=== PATIENT | female | born 1965 | race Caucasian/White ===

== ENCOUNTER 2016-10-07 04:22 | Emergency (ER) | payer BC ==
[~2016-10-07] VITALS: Ht 160 cm; Wt 63.5 kg
[~2016-10-07 04:22] MED LIST: BACL10TA PO; GABA-534 PO; HYDR-3326 PO; NAPR500T3 PO; PARO10TA23 PO; SULF1TAB48 PO
[2016-10-07] MEDS ORDERED: DEXAMETHASONE SOD PHOSPHATE 4 MG/ML VIAL IM ONE (05:30)
[2016-10-07] MEDS ORDERED: DEXAMETHASONE SOD PHOSPHATE 10 MG/ML VIAL ONE (05:35)
[2016-10-07 06:40] VITALS: BP 138/87
== END 2016-10-07 08:16 | disposition home or self-care (01) ==
LOC: ER 04:25
DX: M25.542 Pain in joints of left hand (principal); M25.562 Pain in left knee; F32.9 Major depressive disorder, single episode, unspecified; F17.200 Nicotine dependence, unspecified, uncomplicated
CPT/HCPCS: 73564-TC; 93970-TC; A4606; J1100; Z7610

== ENCOUNTER 2016-10-19 23:31 | Emergency (ER) | payer BC, MEDICAID ==
[~2016-10-19] VITALS: Ht 160 cm; Wt 64.0 kg
[~2016-10-19 23:31] MED LIST changes: -PARO10TA23 PO; +PARO10TA26 PO
[2016-10-20] MEDS ORDERED: KETOROLAC TROMETHAMINE INJ 60 MG/2 ML VIAL IM ONE
[2016-10-20] MEDS ORDERED: KETOROLAC TROMETHAMINE INJ 30 MG/ML VIAL ONE (00:06)
[2016-10-20 00:50] VITALS: BP 140/74
== END 2016-10-20 00:51 | disposition home or self-care (01) ==
LOC: ER 23:36
DX: S52.592A Other fractures of lower end of left radius, initial encounter for closed fracture (principal); F17.210 Nicotine dependence, cigarettes, uncomplicated; F10.20 Alcohol dependence, uncomplicated; W18.30XA Fall on same level, unspecified, initial encounter; Y93.89 Activity, other specified; Y92.89 Other specified places as the place of occurrence of the external cause; Y99.8 Other external cause status
CPT/HCPCS: 73090-TC; A4606; J1885; Z7610

== ENCOUNTER 2017-06-05 03:42 | Emergency (ER) | payer OTHER ==
[~2017-06-05] VITALS: Ht 162.6 cm; Wt 65.8 kg
[2017-06-05 04:10] VITALS: BP 134/70
== END 2017-06-05 04:53 | disposition home or self-care (01) ==
LOC: ER 03:42
DX: M62.830 Muscle spasm of back (principal); F32.9 Major depressive disorder, single episode, unspecified; G89.4 Chronic pain syndrome
CPT/HCPCS: A4606; J1885; Z7610

== ENCOUNTER 2018-03-12 18:55 | Emergency (ER) | payer OTHER ==
[~2018-03-12] VITALS: Ht 157.5 cm; Wt 70.3 kg
[~2018-03-12 18:55] MED LIST changes: -HYDR-3326 PO; +HYDR-3974 PO; +NAPR-1009 PO; -NAPR500T3 PO; -PARO10TA26 PO; +PARO10TA86 PO
[2018-03-12 19:43] VITALS: BP 142/86
[2018-03-12] MEDS ORDERED: KETOROLAC TROMETHAMINE INJ 30 MG/ML VIAL ONE (20:37)
[2018-03-12] MEDS ORDERED: KETOROLAC TROMETHAMINE INJ 60 MG/2 ML VIAL IM ONE (21:00)
== END 2018-03-12 20:51 | disposition home or self-care (01) ==
LOC: ER 18:56
DX: M26.621 Arthralgia of right temporomandibular joint (principal); F41.9 Anxiety disorder, unspecified; M79.602 Pain in left arm; R45.86 Emotional lability; G89.29 Other chronic pain; F10.10 Alcohol abuse, uncomplicated; Y90.9 Presence of alcohol in blood, level not specified; F17.200 Nicotine dependence, unspecified, uncomplicated; Z98.890 Other specified postprocedural states
CPT/HCPCS: 96372; 99284; A4606; J1885; Z7610

== ENCOUNTER 2019-01-12 20:49 | Emergency (ER) | payer OTHER ==
[~2019-01-12] VITALS: Ht 160 cm; Wt 70.3 kg
--- NOTE | 2019-01-12 21:15 | NUR ---
BIBFRIEND C/O ALL OVER BODY PAIN X 3 DAYS. PATIENT APPEARS VERY ANXIOUS. PT AOX3, AMB, VSS, RR EVEN AND UNLABORED. SKIN INTACT. FRIEND AT BEDSIDE. READY FOR EVAL.
[2019-01-12] MEDS ORDERED: LORAZEPAM INJ 2 MG/ML VIAL IV ONE (22:30)
[2019-01-12] MEDS ORDERED: methylPREDNISolone SOD SUCC 125 MG/2ML VIAL IV ONE (22:30)
[2019-01-12] MEDS ORDERED: KETOROLAC TROMETHAMINE INJ 30 MG/ML VIAL IV ONE (22:30)
[2019-01-12] MEDS ORDERED: methylPREDNISolone SOD SUCC 125 MG/2ML VIAL ONE (22:44)
[2019-01-12] MEDS ORDERED: LORAZEPAM INJ 2 MG/ML VIAL ONE (22:44)
[2019-01-12] MEDS ORDERED: KETOROLAC TROMETHAMINE INJ 30 MG/ML VIAL ONE (22:44)
[2019-01-12 23:08] LABS: BASOPHILS # (AUTO) 0.1 /CMM (0.0-0.2); BASOPHILS % (AUTO) 0.9 % (0.0-2.0); EOSINOPHILS % (AUTO) 3.2 % (0.0-6.0); HEMATOCRIT 44 % (33-45); HEMOGLOBIN 15.2 g/dL (11.5-14.8); LYMPHOCYTES # (AUTO) 2.1 /CMM (0.8-4.8); LYMPHOCYTES % (AUTO) 24.9 % (20.0-44.0); MEAN CORPUSCULAR HGB CONC 34 g/dl (31.0-36.0); MEAN CORPUSCULAR VOLUME 87 fL (82-100); MONOCYTES # (AUTO) 0.7 /CMM (0.1-1.30); MONOCYTES % (AUTO) 8.2 % (2.0-12.0); NEUTROPHILS # (AUTO) 5.4 /CMM (1.8-8.9); NEUTROPHILS % (AUTO) 62.8 % (43.0-81.0); PLATELET COUNT (AUTO) 405 /CMM (150-450); RED BLOOD CELL COUNT(AUTO) 5.11 MIL/uL (4.0-5.2); WHITE BLOOD COUNT (AUTO) 8.6 K/uL (4.3-11.0)
[2019-01-12 23:32] LABS: CALCIUM, SERUM 9.3 mg/dL (8.5-10.1); CREATININE 0.6 mg/dL (0.6-1.3); POTASSIUM 3.9 mmol/L (3.5-5.1)
--- NOTE | 2019-01-12 23:33 | NUR ---
Patient is resting comfortably in. Easily aroused. VSS
--- NOTE | 2019-01-13 00:19 | NUR ---
Patient discharged to home in stable condition. Written and verbal after care instructions given. Patient verbalizes understanding of instruction. IV removed. Catheter intact and site benign. Pressure and 4x4 applied to site. No bleeding noted.
[2019-01-13 00:20] VITALS: BP 149/99
== END 2019-01-13 00:21 | disposition home or self-care (01) ==
LOC: ER 20:51
DX: M25.542 Pain in joints of left hand (principal); M25.541 Pain in joints of right hand; F41.9 Anxiety disorder, unspecified; F31.9 Bipolar disorder, unspecified; G89.4 Chronic pain syndrome; F17.200 Nicotine dependence, unspecified, uncomplicated
CPT/HCPCS: 36415; 71045; 80048; 85025; 96374; 96375; 99284; J1885; J2060; J2930

== ENCOUNTER 2019-03-11 20:57 | Emergency (ER) | payer OTHER ==
[~2019-03-11] VITALS: Ht 160 cm; Wt 68.0 kg
--- NOTE | 2019-03-11 21:17 | NUR ---
PT BIBSELF FOR SWOLLEN FINGERS, PT AAOX4, PT ON MONITOR, VSS, NAD NOTED, PENDING MD KINCAID
[2019-03-11] MEDS ORDERED: KETOROLAC TROMETHAMINE INJ 30 MG/ML VIAL IV ONE (22:00)
[2019-03-11] MEDS ORDERED: LORAZEPAM INJ 2 MG/ML VIAL IV ONE (22:00)
[2019-03-11] MEDS ORDERED: methylPREDNISolone SOD SUCC 125 MG/2ML VIAL IV ONE (22:00)
[2019-03-11 22:03] LABS: BASOPHILS % (AUTO) 0.4 % (0.0-2.0); EOSINOPHILS % (AUTO) 3.6 % (0.0-6.0); HEMATOCRIT 43 % (33-45); HEMOGLOBIN 14.6 g/dL (11.5-14.8); LYMPHOCYTES # (AUTO) 1.8 /CMM (0.8-4.8); LYMPHOCYTES % (AUTO) 22.6 % (20.0-44.0); MEAN CORPUSCULAR HGB CONC 34 g/dl (31.0-36.0); MEAN CORPUSCULAR VOLUME 89 fL (82-100); MONOCYTES # (AUTO) 0.6 /CMM (0.1-1.30); MONOCYTES % (AUTO) 7.6 % (2.0-12.0); NEUTROPHILS # (AUTO) 5.2 /CMM (1.8-8.9); NEUTROPHILS % (AUTO) 65.8 % (43.0-81.0); PLATELET COUNT (AUTO) 386 /CMM (150-450); RED BLOOD CELL COUNT(AUTO) 4.87 MIL/uL (4.0-5.2); WHITE BLOOD COUNT (AUTO) 7.9 K/uL (4.3-11.0)
[2019-03-11 22:10] LABS: CALCIUM, SERUM 9.2 mg/dL (8.5-10.1); POTASSIUM 4.6 mmol/L (3.5-5.1)
[2019-03-11 22:16] LABS: ALBUMIN 3.4 g/dL (3.4-5.0); BILIRUBIN,TOTAL 0.2 mg/dL (0.2-1.0); TOTAL PROTEIN, SERUM 7.2 g/dL (6.4-8.2)
[2019-03-11] MEDS ORDERED: KETOROLAC TROMETHAMINE 15 MG/ML VIAL ONE (22:21)
[2019-03-11] MEDS ORDERED: LORAZEPAM INJ 2 MG/ML VIAL ONE (22:21)
[2019-03-11] MEDS ORDERED: methylPREDNISolone SOD SUCC 125 MG/2ML VIAL ONE (22:21)
[2019-03-11 22:54] VITALS: BP 130/80
== END 2019-03-11 22:57 | disposition home or self-care (01) ==
LOC: ER 21:01
DX: G89.29 Other chronic pain (principal); M25.549 Pain in joints of unspecified hand; F41.9 Anxiety disorder, unspecified; F31.9 Bipolar disorder, unspecified; F17.200 Nicotine dependence, unspecified, uncomplicated
CPT/HCPCS: 36415; 80053; 85025; 96374; 96375; 99283; J1885; J2060; J2930

== ENCOUNTER 2019-03-18 00:39 | Emergency (ER) | payer OTHER ==
[~2019-03-18] VITALS: Ht 160 cm; Wt 68.0 kg
--- NOTE | 2019-03-18 01:06 | NUR ---
bibs for c/o both hands redness and edema and burning pain. pt appears very anxious . reported her condiotion as a reccurent problem. denied CP or SOB. vss. will cont to monitor ,
[2019-03-18] MEDS ORDERED: KETOROLAC TROMETHAMINE INJ 60 MG/2 ML VIAL IM ONE ×2 (01:12→01:30)
--- NOTE | 2019-03-18 01:25 | NUR ---
Patient discharged to home in stable condition. Written and verbal after care instructions given. Patient verbalizes understanding of instruction.
[2019-03-18 01:27] VITALS: BP 118/69
== END 2019-03-18 01:28 | disposition home or self-care (01) ==
LOC: ER 00:42
DX: G89.29 Other chronic pain (principal); M79.641 Pain in right hand; M79.642 Pain in left hand; R22.33 Localized swelling, mass and lump, upper limb, bilateral; F32.9 Major depressive disorder, single episode, unspecified; F41.9 Anxiety disorder, unspecified; F17.200 Nicotine dependence, unspecified, uncomplicated; Z79.899 Other long term (current) drug therapy
CPT/HCPCS: 96372; 99283; J1885

== ENCOUNTER 2019-10-28 20:25 | Emergency (ER) | payer OTHER ==
[~2019-10-28] VITALS: Ht 160 cm; Wt 72.6 kg
--- NOTE | 2019-10-28 20:27 | NUR ---
CALLED PT TO BE TRIAGED, NO ANSWER
--- NOTE | 2019-10-28 20:38 | NUR ---
BIBSELF C/O GENERALIZED BODY ACHE AND DIZZINESS. +BILATERAL EAR ACHE. PER PATIENT "I FEEL DIZZY WHEN I AM LAYING DOWN, THE ROOM IS SPINNING. VSS. Awaiting MD for missy.
[2019-10-28] MEDS ORDERED: MECLIZINE HCL 25 MG TABLET ONE (20:52)
[2019-10-28] MEDS ORDERED: ONDANSETRON HCL/PF 4 MG/2 ML VIAL ONE (20:52)
[2019-10-28] MEDS ORDERED: LORAZEPAM INJ 2 MG/ML VIAL ONE (20:53)
[2019-10-28 20:54] LABS: BASOPHILS % (AUTO) 0.3 % (0.0-2.0); EOSINOPHILS % (AUTO) 3.1 % (0.0-6.0); HEMATOCRIT 46 % (33-45); HEMOGLOBIN 15.1 g/dL (11.5-14.8); LYMPHOCYTES # (AUTO) 2.1 /CMM (0.8-4.8); LYMPHOCYTES % (AUTO) 21.7 % (20.0-44.0); MEAN CORPUSCULAR HGB CONC 33 g/dl (31.0-36.0); MEAN CORPUSCULAR VOLUME 86 fL (82-100); MONOCYTES # (AUTO) 0.6 /CMM (0.1-1.30); MONOCYTES % (AUTO) 6.4 % (2.0-12.0); NEUTROPHILS # (AUTO) 6.6 /CMM (1.8-8.9); NEUTROPHILS % (AUTO) 68.5 % (43.0-81.0); PLATELET COUNT (AUTO) 504 /CMM (150-450); RED BLOOD CELL COUNT(AUTO) 5.34 MIL/uL (4.0-5.2); WHITE BLOOD COUNT (AUTO) 9.7 K/uL (4.3-11.0)
--- NOTE | 2019-10-28 20:58 | NUR ---
BROUGHT TO CT
[2019-10-28] MEDS ORDERED: LORAZEPAM INJ 2 MG/ML VIAL IV ONE (21:00)
[2019-10-28] MEDS ORDERED: IV NS 0.9% 1,000 ML BAG IV ONE (21:00)
[2019-10-28] MEDS ORDERED: MECLIZINE HCL 25 MG TABLET PO ONE (21:00)
[2019-10-28] MEDS ORDERED: ONDANSETRON HCL/PF 4 MG/2 ML VIAL IVP ONE (21:00)
[2019-10-28 21:04] LABS: CALCIUM, SERUM 9.7 mg/dL (8.5-10.1); CREATININE 0.7 mg/dL (0.6-1.3); POTASSIUM 4.2 mmol/L (3.5-5.1)
--- NOTE | 2019-10-28 22:50 | NUR ---
Patient discharged to home in stable condition. Written and verbal after care instructions given. Patient verbalizes understanding of instruction and RX. IV removed. Catheter intact and site benign. Pressure and 4x4 applied to site. No bleeding noted. Pt was picked up by . vss.
[2019-10-28 22:51] VITALS: BP 122/72
== END 2019-10-28 23:08 | disposition home or self-care (01) ==
LOC: ER 20:26
DX: R42 Dizziness and giddiness (principal); F41.9 Anxiety disorder, unspecified; F31.9 Bipolar disorder, unspecified; R51 Headache; G89.4 Chronic pain syndrome; F17.200 Nicotine dependence, unspecified, uncomplicated; Z79.899 Other long term (current) drug therapy
CPT/HCPCS: 36415; 70450; 80048; 85025; 96361; 96374; 96375; 99284; J2060; J2405; J7030; J8597

== ENCOUNTER 2019-11-25 03:16 | Emergency (ER) | payer OTHER ==
--- NOTE | 2019-11-25 03:25 | NUR ---
PT CALLED TO TRIAGE BUT NOT IN WAITING ROOM.
--- NOTE | 2019-11-25 03:30 | NUR ---
PT IS NOT IN WAITING ROOM. LEFT WITHOUT ADELSO TRIAGE AND SEEN
== END 2019-11-25 04:00 | disposition left against medical advice (07) ==
LOC: ER 03:18
DX: K08.89 Other specified disorders of teeth and supporting structures (principal); Z53.21 Procedure and treatment not carried out due to patient leaving prior to being seen by health care provider

== ENCOUNTER 2023-09-03 04:40 | Emergency (ER) | payer MEDICAID, OTHER ==
[~2023-09-03] VITALS: Ht 160 cm; Wt 71.7 kg
[2023-09-03] MEDS ORDERED: ONDANSETRON 4 MG TAB.RAPDIS ONE (05:40)
[2023-09-03] MEDS ORDERED: ACETAMINOPHEN ES 500 MG TABLET ONE (05:40)
[2023-09-03] MEDS ORDERED: GABA300C PO (05:46)
[2023-09-03] MEDS ORDERED: FLUO40CA8 PO (05:46)
[2023-09-03] MEDS ORDERED: ONDANSETRON 4 MG TAB.RAPDIS SL ONE (06:00)
[2023-09-03] MEDS ORDERED: ACETAMINOPHEN ES 500 MG TABLET PO ONE (06:00)
[2023-09-03 08:03] VITALS: BP 127/76; TEMP 98; O2SAT 97
== END 2023-09-03 08:03 | disposition home or self-care (01) ==
LOC: ER 04:42
DX: T14.90XA Injury, unspecified, initial encounter (principal); M25.522 Pain in left elbow; F31.9 Bipolar disorder, unspecified; F17.200 Nicotine dependence, unspecified, uncomplicated; Z79.899 Other long term (current) drug therapy; W01.0XXA Fall on same level from slipping, tripping and stumbling without subsequent striking against object, initial encounter; Y93.89 Activity, other specified; Y92.89 Other specified places as the place of occurrence of the external cause; Y99.8 Other external cause status
CPT/HCPCS: 99284; 72125; 73080; 70450; Q0162